=== PATIENT | male | born 1985 | race Caucasian/White ===

== ENCOUNTER 2019-08-01 14:32 | Emergency (ER) | payer MEDICAID ==
[~2019-08-01] VITALS: Ht 185.4 cm; Wt 67.6 kg
[2019-08-01 14:39] VITALS: BP 139/82
--- NOTE | 2019-08-01 16:54 | NUR ---
ULTRASOUND AT BEDSIDE
[2019-08-01 18:19] LABS: CLARITY,URINE CLEAR (Clear); COLOR,URINE YELLOW (Yellow); GLUCOSE, URINE NEGATIVE (Neg); KETONES,URINE NEGATIVE (Neg); LEUKOCYTE ESTERASE ,URINE NEGATIVE (Neg); NITRITES, URINE NEGATIVE (Neg); OCCULT BLOOD,URINE NEGATIVE (Neg); PH,URINE 6.5 (4.8-8.0); PROTEIN,URINE NEGATIVE (Neg); UROBILINOGEN,URINE 0.2 E.U/dL (0.2-1.0)
[2019-08-01 18:24] LABS: UA COLLECTION TYPE CLN CATCH MIDSTREAM
== END 2019-08-01 18:37 | disposition home or self-care (01) ==
LOC: ER 14:33
DX: N50.812 Left testicular pain (principal); F31.9 Bipolar disorder, unspecified; R45.851 Suicidal ideations; F12.90 Cannabis use, unspecified, uncomplicated
CPT/HCPCS: 76870; 81003; 99284